=== PATIENT | female | born 1985 ===

== ENCOUNTER 2018-10-29 18:07 | Emergency (ER) | payer OTHER ==
[~2018-10-29] VITALS: Ht 157.5 cm; Wt 58.6 kg
[2018-10-29 19:38] VITALS: BP 109/72
[2018-10-30 12:16] LABS: HEPATITIS B SURFACE ANTIGEN Negative (Negative); HEPATITIS C VIRUS ANTIBODY Negative (Negative)
== END 2018-10-29 19:38 | disposition home or self-care (01) ==
LOC: ED 18:07
PROVIDERS: Nurse Practitioner
DX: Z77.21 Contact with and (suspected) exposure to potentially hazardous body fluids (principal)